=== PATIENT | female | born 1985 | race African-American/Black ===

== ENCOUNTER 2016-11-21 20:08 | Emergency (ER) | payer BC, OTHER ==
[2016-11-21 22:04] LABS: URINE SOURCE CLEAN CATCH
[2016-11-21 22:07] LABS: URINE APPEARANCE CLEAR; URINE BILIRUBIN NEG (NEG); URINE BLOOD NEG (NEG); URINE COLOR YELLOW; URINE GLUCOSE NEG (NEG); URINE KETONE NEG (NEG); URINE LEUKOCYTE ESTERASE NEG (NEG); URINE NITRATE NEG (NEG); URINE PROTEIN TRACE (NEG); URINE SPECIFIC GRAVITY 1.019 (1.003-1.035)
[2016-11-21 22:19] LABS: CULTURE INDICATED? NO
== END 2016-11-22 00:32 | disposition hospice, home (50) ==
LOC: CED 20:08
PROVIDERS: Emergency Medicine
DX: O99.89 Other specified diseases and conditions complicating pregnancy, childbirth and the puerperium (principal); R10.9 Unspecified abdominal pain
CPT/HCPCS: 81003; 99284

== ENCOUNTER 2017-01-11 12:16 | Emergency (ER) | payer BC, OTHER | END 2017-01-11 14:06 | disposition home or self-care (01) | LOC: CED 12:16 | DX: K08.89 Other specified disorders of teeth and supporting structures (principal) | CPT/HCPCS: 99283 ==